=== PATIENT | male | born 1940 | race Caucasian/White ===

== ENCOUNTER 2022-06-14 15:54 | Inpatient (IN) | payer SELFPAY ==
[~2022-06-14] VITALS: Ht 180.3 cm; Wt 103.4 kg
[2022-06-14 16:10] LABS: Calcium, Ionized (POC) 1.28 mmol/L (1.10-1.46); Chloride (POC) 110 mmol/L (98-108); Creatinine (POC) 1.9 mg/dL (0.8-1.3); Glucose (ISTAT POC) 307 mg/dL (70-99); Hemoglobin (POC) 9.5 g/dL (13.5-17.5); Potassium (POC) 5.4 mmol/L (3.5-5.5); Sodium (POC) 139 mmol/L (135-148); Total CO2 (POC) 20 mmol/L (21-32)
[2022-06-14 16:36] LABS: Hematocrit 25.7 % (37.0-53.0); Hemoglobin 7.6 g/dL (13.5-17.5); Mean Corpuscular HGB 27.3 pg (26.0-34.0); Mean Corpuscular HGB Conc 29.6 g/dL (31.5-36.5); Mean Corpuscular Volume 92 fL (80-100); Mean Platelet Volume 10.9 fL (9.1-12.4); NRBC ABSOLUTE 0.03 K/mm3 (0.00-0.02); NRBC Auto 0.2 /100 WBC (0.0-0.2); Platelet Count 172 K/mm3 (150-400); RDW Coefficient Variation 18.1 % (11.7-14.2); RDW Standard Deviation 61.6 fL (35.1-46.3); Red Blood Cell Count 2.78 M/mm3 (4.30-5.90); White Blood Cell Count 17.01 K/mm3 (4.00-11.30)
[2022-06-14 16:46] LABS: Base Excess Venous -20.7 mmol/L; Bicarbonate Venous 9.3 mmol/L (24.0-30.0); pH Blood Venous <6.80 (7.34-7.37)
[2022-06-14 16:49] LABS: International Normalized Ratio 1.24; Prothrombin Time Results 12.8 Sec (9.7-11.5)
[2022-06-14 16:59] LABS: BAND PERCENT MAN 7 % (0-8); BASOPHILS ABSOLUTE MAN 0.17 K/mm3 (0.00-0.23); BASOPHILS PERCENT MAN 1 % (0-2); EOSINOPHILS PERCENT MAN 0 % (0-6); LYMPHOCYTES ABSOLUTE MAN 5.61 K/mm3 (0.84-5.20); LYMPHOCYTES PERCENT MAN 33 % (21-46); METAMYELOCYTE ABSOLUTE MAN 0.34 K/mm3 (0.00-0.00); METAMYELOCYTE PERCENT MAN 2 % (0-0); MONOCYTES ABSOLUTE MAN 3.57 K/mm3 (0.16-1.47); MONOCYTES PERCENT MAN 21 % (4-13); MYELOCYTE ABSOLUTE MAN 0.34 K/mm3 (0.00-0.00); MYELOCYTE PERCENT MAN 2 % (0-0); Magnesium, Blood 1.8 mg/dL (1.6-2.4); NEUTROPHILS ABSOLUTE MAN 6.97 K/mm3 (1.96-9.15); SEG NEUTROPHILS PERCENT MAN 34 % (41-73); TOTAL CELLS COUNTED 100
[2022-06-14 17:03] LABS: Albumin, Blood 2.7 g/dL (3.4-5.0); Albumin/Globulin Ratio 0.7 (0.8-1.8); Bilirubin, Total 0.2 mg/dL (0.1-1.0); Calcium, Blood 8.4 mg/dL (8.5-10.1); Creatinine, Blood 1.77 mg/dL (0.60-1.20); Globulin, Blood 3.8 g/dL (2.2-4.0); Potassium, Blood 5.3 mmol/L (3.5-5.5); Thyroid Stimulating Hormone 1.34 uIU/mL (0.360-4.800); Total Protein, Blood 6.5 g/dL (6.4-8.2)
[2022-06-14 17:26] LABS: Influenza A, PCR NEGATIVE (NEGATIVE); Influenza B, PCR NEGATIVE (NEGATIVE); Resp Syncytial Virus, PCR NEGATIVE (NEGATIVE); SARS-Cov-2 (COVID-19) PCR, MMC NEGATIVE (NEGATIVE)
[2022-06-14 17:50] LABS: Source, Urine Foley catheter
[2022-06-14 17:58] LABS: Bilirubin, Urine Neg (Neg); Blood, Urine 2+ (Neg); Color, Urine Yellow (P-Yellow); Glucose Qualitative, Urine 2+ (Neg); Ketones, Urine Neg (Neg); Leukocyte Esterase, Urine Neg (Neg); Nitrite, Urine Neg (Neg); Protein, Urine 3+ (Neg); Urobilinogen, Urine NORM (Normal)
[2022-06-14 18:15] LABS: Appearance, Urine Hazy (Clear)
[2022-06-14 18:17] LABS: Red Blood Cells, Urine 0-2 /hpf (0-2); White Blood Cells, Urine 0-2 /hpf (0-5)
[2022-06-14 18:18] LABS: Bacteria Mod /hpf; Mucus Mod (0-Heavy); Spermatozoa Few /hpf; Squamous Epithelial Cells Few /hpf (Few); Transitional Epithelial Cells Rare /hpf (0-Rare)
--- NOTE | 2022-06-14 19:27 | NUR ---
Patient arrived shortly before 1800 and was transferred to ICU 8 bed. His sats were not increasing over 80 and when listening he sounded very tight. Hewas on Dopamine at 10 mcg/kg/min and increased to 15 since epi had run out during transfer, Systolic low 100's. He has Left femoral CL, 20ga RAC and 20ga LAC. Epi arrived and restarted at the previous rate of 15 mcg/min and decreased Dopamine to previous 10 mcg/kg/min. and Dr gillespie wanted Levophed started at 5 mcg/min. Chest xray was done and found he had right sided pneumo and he placed pigtail and immediatly started to flow thin serous fluid, hooked up pleura vac and he had 400+ ml. Placed sterile dressing over pigtail. Gave report to Rene HARRIS.
[2022-06-14 21:10] LABS: PCO2 Arterial 54.7 mmHg (35-45); PO2 Arterial 61.1 mmHg (80-100); pH Blood Arterial 7.15 (7.35-7.45)
[2022-06-14 22:52] LABS: Bun/Creatinine Ratio 23.5 (12.0-20.0); Calcium, Blood 8.7 mg/dL (8.5-10.1); Creatinine, Blood 1.96 mg/dL (0.60-1.20); Potassium, Blood 6.3 mmol/L (3.5-5.5)
[2022-06-15 03:41] LABS: BASOPHILS ABSOLUTE AUTO 0.04 K/mm3 (0.00-0.23); BASOPHILS PERCENT AUTO 0 % (0-2); EOSINOPHILS PERCENT AUTO 0 % (0-6); Hematocrit 28.5 % (37.0-53.0); Hemoglobin 8.9 g/dL (13.5-17.5); IMMATURE GRAN ABSOLUTE AUTO 0.55 K/mm3 (0.00-0.10); IMMATURE GRAN PERCENT AUTO 2 % (0-1); LYMPHOCYTES ABSOLUTE AUTO 0.36 K/mm3 (0.84-5.20); LYMPHOCYTES PERCENT AUTO 1 % (21-46); MONOCYTES ABSOLUTE AUTO 5.48 K/mm3 (0.16-1.47); MONOCYTES PERCENT AUTO 20 % (4-13); Mean Corpuscular HGB 27.2 pg (26.0-34.0); Mean Corpuscular HGB Conc 31.2 g/dL (31.5-36.5); NEUTROPHILS ABSOLUTE AUTO 20.93 K/mm3 (1.96-9.15); NEUTROPHILS PERCENT AUTO 77 % (41-73); Platelet Count 342 K/mm3 (150-400); RDW Coefficient Variation 17.2 % (11.7-14.2); RDW Standard Deviation 55.7 fL (35.1-46.3); Red Blood Cell Count 3.27 M/mm3 (4.30-5.90); White Blood Cell Count 27.36 K/mm3 (4.00-11.30)
[2022-06-15 03:48] LABS: Mean Corpuscular Volume 87 fL (80-100)
[2022-06-15 04:03] LABS: Albumin, Blood 2.3 g/dL (3.4-5.0); Albumin/Globulin Ratio 0.7 (0.8-1.8); Bilirubin, Direct 0.2 mg/dL (0.0-0.3); Bilirubin, Indirect 0.3 mg/dL (0.1-0.7); Bilirubin, Total 0.5 mg/dL (0.1-1.0); Bun/Creatinine Ratio 23.7 (12.0-20.0); Calcium, Blood 8.5 mg/dL (8.5-10.1); Creatinine, Blood 2.15 mg/dL (0.60-1.20); Globulin, Blood 3.5 g/dL (2.2-4.0); Phosphorus, Blood 3.3 mg/dL (2.5-4.9); Potassium, Blood 4.8 mmol/L (3.5-5.5); Total Protein, Blood 5.8 g/dL (6.4-8.2)
[2022-06-15 04:50] LABS: PCO2 Arterial 53.3 mmHg (35-45); PO2 Arterial 73.8 mmHg (80-100)
[2022-06-15 04:51] LABS: pH Blood Arterial 7.25 (7.35-7.45)
--- NOTE | 2022-06-15 06:04 | NUR ---
SHIFT NOTE. Assumed care at 1900, report recieved from yadira RN. Pt in bed, ventilated via ETT. Multiple pressors running: levophed 10 mcg/min, dopamine 10 mcg/kg/min, epi 15 mcg/min. at bedside throughout shift. Able to titrate all pressors off by 2300, however pt slowly desaturated over the next several hours and started overbreathing the vent. Propofol started for vent compliance with minimal effect. Lung sounds decreased on R/side as sats declined, Dr. Bee present in unit and notified of findings. Stat chest Xray obtained, R/sided pneumo showed an increase in size and second chest tube placed by Dr. Bee at approximately 0245. Pt saturations improved however levophed and epi were required for BP support during procedure. Levophed is currently running at 15 mcg/min, Epi at 2 mcg/min, Bicarb at 200 ml/hr. Vent settings AC/VC 22/500/10/75%. Chest tubes in place, R/anterior and R/lateral, -40cm suction applied to both, no leaks currently. OG tube in place, to low intermittent suciton. Glynn catheter in place, draining to gravity. See shift assessments for further details. Will continue to monitor and report off to yadira RN.
[2022-06-15 07:30] LABS: PCO2 Arterial 49.8 mmHg (35-45); pH Blood Arterial 7.29 (7.35-7.45)
--- NOTE | 2022-06-15 07:30 | NUR ---
Received report from Rene HARRIS. Patient is intubated with no sedation. Pupils are 3 bilateral and fixed. He shows no purposeful movement to distal extremities. He is on vent with 8.0 ET and 26 cm at teeth with vent settings of AC/VC+ 22/500/75/10 and sats 99%. He has 20ga bilateral AC, both flushed and SL'd. He has left femoral CL and is infusing levophed at 15 mcg/min, NS TKO, Bicarb at 150 ml/hr, Epinepherine 2 mcg/min. Patient in A-fib 60's. He has 2 left sided chest tubes in place with no out since last night, dressings intact. He has 16 Fr Temp ch draining to gravity and temp of 95.9. was here at report time and has now gone back to current residence.
[2022-06-15 07:31] LABS: PO2 Arterial 42.3 mmHg (80-100)
--- NOTE | 2022-06-15 09:30 | NUR ---
Patient has no changes to vent setting. Placed epi on hold and Levophed at 15 mcg/min. No pupil or neuro changes. Contiues to have no output from both chest tubes. patient has slight cuff leak and placed 1.5 ml air in and cuff leak stopped. No extremity movement. Glynn remains patent.
--- NOTE | 2022-06-15 10:27 | NUR ---
CARE ASSUMED OF PT AT 1020. REPORT TAKEN AT BEDSIDE. DR QUINTANA AT BEDSIDE TO SEE PT. BICARB DECREASED TO 100CC/HR PER DR QUINTANA. PT COMPLETELY UNRESPONSIVE. NEG DOLLS EYES, PUPILS FIXED, ABSENT CORNEAL REFLEX, ABSENT PLANTAR, COUGH, SWALLOW, GAG. NO RESPONSE TO PAIN. DOES NOT BREATH OVER VENT. CHEST TUBE X2, DRSG C/D/I. NO CREPITUS/AIR LEAK. LEVOPHED DECREASED FROM 15MCG TO 10MCG. NO SEDATION.
[2022-06-15 16:17] LABS: PCO2 Arterial 43.2 mmHg (35-45); pH Blood Arterial 7.39 (7.35-7.45)
[2022-06-15 17:01] LABS: Magnesium, Blood 1.3 mg/dL (1.6-2.4)
[2022-06-15 17:04] LABS: Bun/Creatinine Ratio 24.8 (12.0-20.0); Calcium, Blood 8.2 mg/dL (8.5-10.1); Creatinine, Blood 2.34 mg/dL (0.60-1.20); Potassium, Blood 4.3 mmol/L (3.5-5.5)
--- NOTE | 2022-06-15 18:25 | NUR ---
PT REMAINS UNRESPONSIVE, ABSENT GAG, COUGH, SWALLOW. ABSENT CORNEAL AND PLANTAR REFLEX, DOES NOT BREATH OVER VENT, NO MOVEMENT TO EXT, NO RESPONSE TO PAIN, PUPILS FIXED. PT'S HEAD DID TURN SEVERAL TIMES DURING SHIFT; APPEARED NON-PURPOSEFUL. DR QUINTANA AWARE AND DID SEE HEAD TURN; POSSIBLE REFLEX. NO OTHER NEURO CHANGES. LEVOPHED AT 10MCG. BICARB GTT DC'D, LR AT 100CC/HR. INSULIN GTT STARTED AND IS AT 4UNITS/HR. MINIMAL CHEST TUBE OUTPUT.
--- NOTE | 2022-06-15 19:28 | NUR ---
Assumed care. Report received from dayshift RN. Pt continues ventilated via ETT, off all sedation. at bedside. No acute changes today per dayshift report, will continue to monitor.
[2022-06-16 04:56] LABS: BASOPHILS ABSOLUTE AUTO 0.02 K/mm3 (0.00-0.23); BASOPHILS PERCENT AUTO 0 % (0-2); EOSINOPHILS PERCENT AUTO 0 % (0-6); Hematocrit 25.9 % (37.0-53.0); Hemoglobin 8.4 g/dL (13.5-17.5); IMMATURE GRAN ABSOLUTE AUTO 0.04 K/mm3 (0.00-0.10); IMMATURE GRAN PERCENT AUTO 0 % (0-1); LYMPHOCYTES ABSOLUTE AUTO 0.59 K/mm3 (0.84-5.20); LYMPHOCYTES PERCENT AUTO 5 % (21-46); MONOCYTES ABSOLUTE AUTO 2.47 K/mm3 (0.16-1.47); MONOCYTES PERCENT AUTO 19 % (4-13); Mean Corpuscular HGB 26.8 pg (26.0-34.0); Mean Corpuscular HGB Conc 32.4 g/dL (31.5-36.5); Mean Corpuscular Volume 83 fL (80-100); Mean Platelet Volume 11.3 fL (9.1-12.4); NEUTROPHILS PERCENT AUTO 76 % (41-73); Platelet Count 257 K/mm3 (150-400); RDW Coefficient Variation 17.6 % (11.7-14.2); RDW Standard Deviation 53.1 fL (35.1-46.3); Red Blood Cell Count 3.13 M/mm3 (4.30-5.90); White Blood Cell Count 13.22 K/mm3 (4.00-11.30)
[2022-06-16 05:22] LABS: Albumin, Blood 2.1 g/dL (3.4-5.0); Anion Gap 10 mmol/L (6-16); Blood Urea Nitrogen 58 mg/dL (8-24); Bun/Creatinine Ratio 25.7 (12.0-20.0); CO2, Blood 26 mmol/L (21-32); Calcium, Blood 8.2 mg/dL (8.5-10.1); Chloride, Blood 104 mmol/L (98-108); Creatinine, Blood 2.26 mg/dL (0.60-1.20); Glomerular Filtration Rate 29 (60-); Glucose, Blood 178 mg/dL (70-99); Magnesium, Blood 1.7 mg/dL (1.6-2.4); Phosphorus, Blood 4.2 mg/dL (2.5-4.9); Potassium, Blood 4.5 mmol/L (3.5-5.5); Sodium, Blood 140 mmol/L (136-145)
--- NOTE | 2022-06-16 06:22 | NUR ---
Shift summary. Pt rested in bed throughout shift, no changes in neurological status, pt still unresponsive to any stimuli, no reflexes present. Insulin titrated off. Levophed titrated to 4 mcg/min. Pt does not tolerate being turned on R/side without desaturating and requiring increased 02. at bedside overnight. See shift assessment for further details. Will continue to monitor and report off to dayshift RN.
--- NOTE | 2022-06-16 07:42 | NUR ---
CARE OF PT ASSUMED AT 0700, BEDSIDE REPORT TAKEN. PT COMPLETELY UNRESPONSIVE. NO REACTIONS TO PAIN, ABSENT GAG, COUGH, CORNEAL, PLANTAR. NOT BREATHING OVER VENT. PUPILS FIXED 4/3MM (RIGHT LENS REPLACEMENT). PT HAS NEW CREPITUS OVER RIGHT SC CHEST TUBE W NEW AIR LEAK. SATS STABLE. LEVOPHED DECREASED TO 2MCG. ON NO SEDATION. BS STABLE. INSULIN OFF. SLEEPING AT BEDSIDE. WILL UPDATE DR QUINTANA.
--- NOTE | 2022-06-16 07:59 | NUR ---
ATTEMPTED TO PLACE PT ON RIGHT SIDE, AFTER 5MIN, SATS STRATED TO DROP. WHEN PLACED SUPINE, SATS IMMEDIATELY IMPROVED.
--- NOTE | 2022-06-16 10:17 | NUR ---
"Spiritual Care | Nurse Request - first visit Pt. is intubabted and not responsive. ICu nurse Janelle requeasted spiritual care support for the spouse. Spouse welcomes my visit. Spouse is quick to give a life review. Listen empathetically with a calming presence. Visit is interrupted by rounding. Pt. is a ([facility] [place] [employer] Spouse verbalized gratitude for the spiritual care visit. This binman will return for spiritual care."
--- NOTE | 2022-06-16 10:47 | NUR ---
Follow up. After Dr. Fonseca met with spouse. Resumed spirittual care visit with spouse. Facilitated more life review. Prayed for Pt. and with Spouse. Spouse verbalized gratitude for the spiritual care visit. Will remain available.
--- NOTE | 2022-06-16 18:43 | NUR ---
ATTEMPTED TO TURN OFF LEVO WHEN IT WAS RUNNING AT 1MCG WITH MAPS >70; MAPS DECREASED TO LESS THAN 60, LEVOPHED RESTARTED AT 1MCG. MAPS NOW >65. MAG GIVEN FOR PROLONGED QTC AND INCREASED ECTOPY/PVC'S. PVC'S IMPROVED. NO CHANGE IN NEURO ASSESSMENT; PT REMAINS UNRESPONSIVE. CREPITUS UNCHANGED TO RIGHT CHEST, AIR LEAK NO LONGER PRESENT. PT DID NOT TOLERATE RIGHT SIDE. PT WAS CHANGED FROM INSULIN GTT TO HIGH SS Q6.
--- NOTE | 2022-06-16 19:30 | NUR ---
ASSUMPTION OF CARE PT IS UNRESPONSIVE. ETT INTACT AND PATENT TO VENT, PT COMPLIANT W/VENT AT THIS TIME W/OXYGEN SAT >95%. PT IS SR ON THE MONITOR W/LEVOPHED INFUSING, TITRATE TO KEEP MAP >65. PUPILS ARE NON REACTIVE. PT HAS NO GAG OR CORNEAL REFLEX. PT HAS 2 CHEST TUBES DRAINING SEROSANGUINOUS FLUID, SOME CREPITUS NOTED TO RIGHT CHEST, DR QUINTANA AWARE AND UNCHANGED FROM PRIOR SHIFT. ENGLISH CATH PATENT AND DRAINING YELLOW URINE. AFEBRILE. PT HAS LEFT FEMORAL CVL.
[2022-06-17 04:04] LABS: BASOPHILS PERCENT AUTO 0 % (0-2); EOSINOPHILS PERCENT AUTO 0 % (0-6); Hematocrit 24.8 % (37.0-53.0); Hemoglobin 7.8 g/dL (13.5-17.5); IMMATURE GRAN ABSOLUTE AUTO 0.07 K/mm3 (0.00-0.10); IMMATURE GRAN PERCENT AUTO 1 % (0-1); LYMPHOCYTES ABSOLUTE AUTO 0.42 K/mm3 (0.84-5.20); LYMPHOCYTES PERCENT AUTO 4 % (21-46); MONOCYTES ABSOLUTE AUTO 1.11 K/mm3 (0.16-1.47); MONOCYTES PERCENT AUTO 11 % (4-13); Mean Corpuscular HGB 26.2 pg (26.0-34.0); Mean Corpuscular HGB Conc 31.5 g/dL (31.5-36.5); Mean Corpuscular Volume 83 fL (80-100); Mean Platelet Volume 11.3 fL (9.1-12.4); NEUTROPHILS ABSOLUTE AUTO 8.16 K/mm3 (1.96-9.15); NEUTROPHILS PERCENT AUTO 84 % (41-73); Platelet Count 201 K/mm3 (150-400); RDW Coefficient Variation 18.1 % (11.7-14.2); RDW Standard Deviation 54.5 fL (35.1-46.3); Red Blood Cell Count 2.98 M/mm3 (4.30-5.90); White Blood Cell Count 9.76 K/mm3 (4.00-11.30)
[2022-06-17 04:25] LABS: Anion Gap 8 mmol/L (6-16); Blood Urea Nitrogen 55 mg/dL (8-24); Bun/Creatinine Ratio 24.1 (12.0-20.0); CO2, Blood 27 mmol/L (21-32); Calcium, Blood 8.5 mg/dL (8.5-10.1); Chloride, Blood 110 mmol/L (98-108); Creatinine, Blood 2.28 mg/dL (0.60-1.20); Glomerular Filtration Rate 28 (60-); Glucose, Blood 255 mg/dL (70-99); Phosphorus, Blood 3.9 mg/dL (2.5-4.9); Potassium, Blood 4.3 mmol/L (3.5-5.5); Sodium, Blood 145 mmol/L (136-145)
--- NOTE | 2022-06-17 06:10 | NUR ---
SHIFT SUMMERY NO ACUTE CHANGES OVERNIGHT. VENT SETTING REMAIN THE SAME, PT TOLERATING WELL. NO SEDATION, PT UNRESPONSIVE WITHOUT GAG/CORNEAL REFLEX. 2 RIGHT SIDED CHEST TUBES TO -20 SUCTION INTACT AND PATENT. PUPILS FIXED. POSSIBLE TRANSITION TO COMFORT CARE TODAY. LEVOPHED AT 1MCG, WHEN PLACED ON STAND BY PT MAP DROPPED BELOW 65. PT UNABLE TO TOLERATE RIGHT SIDED TURNS.
--- NOTE | 2022-06-17 07:14 | NUR ---
Received report from Destini HARRIS. Patient is intubated and not sedated. He has 8.0 ET and 26cm at teeth with vent settings of AC/VC+ 22/500/35/10 and sats 98%. Neuros are pupils 3 and fixed, no distal extremity movements, no pupilary reactions, and no response to pain. Patient has small fr OG in place and clamped. He has Right groin CL dressing intact and site WNL's and is infusing NS TKO, LR at 100 ml/hr, Levophed at 1 mcg/min. He has 16 Fr temp ch draining to gravity and temp of 98.6. Skin tear to left hand with mepelex dressing in place. he has t chest tubes to right chest with little to no output and no air leaks to either. He has 4+ pitting edema to bilateral LE's. at home resting.
--- NOTE | 2022-06-17 11:30 | NUR ---
is here and Dr Bee went in to talk with her. She will remain at bedside until she makes a decisioon for comfort care. No changes to neuro's Levophed off and fluids stopped and systolic 120. No output to chest tubes. Pupils fixed at 3 and no occular sensitivity, no distal extremity movement. Glynn patent.
[2022-06-17] MEDS ORDERED: ALBU90OI INH (12:57)
[2022-06-17] MEDS ORDERED: Acidophilus1 EAC1 PO (12:59)
[2022-06-17] MEDS ORDERED: SULTRIDS PO (13:01)
--- NOTE | 2022-06-17 13:10 | NUR ---
Pt. is inutbated and non responsive. Spouse is present. Spouse verbalizes that she is ready to make a decision regarding withdrawing care. Listen empathetically with a calming presence. Spouse is willing to to meet with someone from Palliative Care about what decisions need to be made. Pt. is a . Briefed charge nurse, and Palliative care has been contacted.
--- NOTE | 2022-06-17 13:23 | NUR ---
asked for palliative care afetr pastoral care was in room and she is ready to make comfort.
--- NOTE | 2022-06-17 15:30 | NUR ---
Patient's spouse making phone calls in room and has not made comfort care. Made brigid to help [facility] with [facility] and have soemone to come in and talk with her. Patient remains on vent AC/VC /35/10 and sat s>90%. His neuro's remain unchanged and no signs of improvement. Patient has NS TKO infusing and notheing else. VSS.
--- NOTE | 2022-06-17 17:23 | NUR ---
Patients at bedside. Patient extubated at 1710 and passed at 1720. [facility] directors was called and time of at final discharge.
--- NOTE | 2022-06-17 18:10 | NUR ---
Spiritual Care - EOL Pt. passed soon after extubation. Met with spouse, who was weighing the decisions she has yet to make. Prayed with Spouse and normalized expectations for decision making. Spouse verbalized gratitude for the spiritual care.
== END 2022-06-17 17:20 | DRG 308 ==
LOC: ER 15:54 → ICUW 17:54 → ICUE 17:54
PROVIDERS: Family Medicine; Internal Medicine Critical Care Medicine; Student in an Organized Health Care Education/Training Program; ADMIT Internal Medicine
PROC: 3E033XZ Introduction of Vasopressor into Peripheral Vein, Percutaneous Approach (ICD-10-PCS; principal; 2022-06-14)
PROC: 02HV33Z Insertion of Infusion Device into Superior Vena Cava, Percutaneous Approach (ICD-10-PCS; 2022-06-14)
PROC: 0BH17EZ Insertion of Endotracheal Airway into Trachea, Via Natural or Artificial Opening (ICD-10-PCS; 2022-06-14)
PROC: 0W9930Z Drainage of Right Pleural Cavity with Drainage Device, Percutaneous Approach (ICD-10-PCS; 2022-06-14)
PROC: 5A1945Z Respiratory Ventilation, 24-96 Consecutive Hours (ICD-10-PCS; 2022-06-14)
PROC: 0W9930Z Drainage of Right Pleural Cavity with Drainage Device, Percutaneous Approach (ICD-10-PCS; 2022-06-15)
DX: R00.1 Bradycardia, unspecified (principal); J96.01 Acute respiratory failure with hypoxia; E87.29 Other acidosis; J93.9 Pneumothorax, unspecified; R57.9 Shock, unspecified; N17.9 Acute kidney failure, unspecified; I50.22 Chronic systolic (congestive) heart failure; I46.9 Cardiac arrest, cause unspecified; Z66 Do not resuscitate; Z51.5 Encounter for palliative care; D72.829 Elevated white blood cell count, unspecified; E87.8 Other disorders of electrolyte and fluid balance, not elsewhere classified; I44.7 Left bundle-branch block, unspecified; I11.0 Hypertensive heart disease with heart failure; Z68.32 Body mass index [BMI] 32.0-32.9, adult; E66.9 Obesity, unspecified; I48.91 Unspecified atrial fibrillation; J44.9 Chronic obstructive pulmonary disease, unspecified; F17.290 Nicotine dependence, other tobacco product, uncomplicated; E11.9 Type 2 diabetes mellitus without complications; E03.9 Hypothyroidism, unspecified; Z86.010 Personal history of colon polyps; Z85.51 Personal history of malignant neoplasm of bladder; Z90.89 Acquired absence of other organs; Z98.890 Other specified postprocedural states
CPT/HCPCS: 0241U; 31500; 32551; 36415; 36556; 36600; 51702; 70450; 71045; 80047; 80048; 80053; 80069; 81001; 82248; 82330; 82803; 82947; 83605; 83735; 83880; 84100; 84145; 84443; 84484; 85014; 85025; 85610; 87086; 92950; 93005; 93010; 93306; 94002; 94003; 94640; 96365-59; 96368; 96375-59; 96376-59; 99291-25; A9270; C9113; J0171; J0282; J0461; J0610; J1265; J1650; J1815; J1940; J2543; J2704; J3370; J3475; J7030; J7050; J7060; J7070; J7120